=== PATIENT | female | born 1975 | race Caucasian/White ===

== ENCOUNTER 2022-09-21 08:13 | Outpatient (CLI) | payer BC | END 2022-09-21 08:14 | disposition home or self-care (01) | LOC: CSHULT 08:13 | PROVIDERS: ATTEND Student in an Organized Health Care Education/Training Program | DX: R74.8 Abnormal levels of other serum enzymes (principal); N28.1 Cyst of kidney, acquired | CPT/HCPCS: 76700 ==

== ENCOUNTER 2023-02-04 07:38 | Outpatient (CLI) | payer BC | END 2023-02-04 07:39 | disposition home or self-care (01) | LOC: CSHULT 07:38 | PROVIDERS: ATTEND Student in an Organized Health Care Education/Training Program | DX: E21.0 Primary hyperparathyroidism (principal) | CPT/HCPCS: 76536 ==